=== PATIENT | female | born 1975 | race Caucasian/White ===

== ENCOUNTER 2020-09-19 05:07 | Emergency (ER) | payer OTHER ==
[2020-09-19] MEDS ORDERED: Proparacaine 0.5% Ophth Soln 15 ML Bottle EYEBOTH STA (05:59)
[2020-09-19] MEDS ORDERED: Proparacaine 0.5% Ophth Soln 15 ML Bottle ONE (06:00)
--- NOTE | 2020-09-19 06:14 | EDM.PDOC ---
ED HPI GENERAL MEDICAL PROBLEM - General Chief Complaint: ENT Problem Stated Complaint: RIGHT EYE BOTHERING HER Time Seen by Provider: 09/19/20 05:56 Source of Information: Reports: Patient, Family, RN Notes Reviewed History Limitations: Reports: No Limitations - History of Present Illness INITIAL COMMENTS - FREE TEXT/NARRATIVE: 45-year-old female presents emergency department day complaint of right eye irritation, she states it started yesterday now she has had increasing pain and eyelid edema over the last 12 hours. She has no trouble with her vision right eye Pain Score (Numeric/FACES): 6 - Related Data Allergies Allergy/AdvReac Type Severity Reaction Status Date / Time amoxicillin Allergy Rash Verified 09/19/20 05:30 azithromycin Allergy Stomach Verified 09/19/20 05:30 Ache Penicillins Allergy Rash Verified 09/19/20 05:30 Home Meds: Home Meds NK [No Known Home Meds] 09/19/20 [History] Past Medical History HEENT History: Reports: Impaired Vision, Other (See Below) Other HEENT History: glasses [employer] History: Reports: Oncologic (Cancer) History: Reports: Basal Cell Carcinoma - Infectious Disease History Infectious Disease History: Reports: Chicken Pox - Past Surgical History Female Surgical History: Reports: Endometrial Ablation Musculoskeletal Surgical History: Reports: Other (See Below) Other Musculoskeletal Surgeries/Procedures:: bone spur removal left foot Social & Family History - Tobacco Use Tobacco Use Status *Q: Never Tobacco User - Caffeine Use Caffeine Use: Reports: Coffee - Recreational Drug Use Recreational Drug Use: Yes Drug Use in Last 12 Months: No ED ROS GENERAL - Review of Systems Review Of Systems: See Below Constitutional: Reports: No Symptoms HEENT: Reports: Eye Discharge, Eye Pain. Denies: Vision Change ED EXAM GENERAL W FULL EYE - Physical Exam Exam: See Below Exam Limited By: No Limitations General Appearance: Alert, WD/WN, No Apparent Distress Eye Exam: Bilateral Eye: EOMI, Normal Inspection, PERRL Eyelids: Right: Edema, Left: Normal Appearance Conjunctiva & Sclera: Right: Conjunctival Edema, Discharge, Injected Cornea Exam: Right: Normal Appearance, Examined with Flourescein Extraocular Movements: Bilateral: Intact Pupils: Normal Accommodation Pupillary Size: Bilateral: 5 mm Pupillary Reaction: Bilateral: Brisk Course - Vital Signs Last Recorded V/S: Last Vital Signs Temp 97.9 F 09/19/20 05:32 Pulse 84 09/19/20 05:32 Resp 14 09/19/20 05:32 BP 123/86 09/19/20 05:32 Pulse Ox 97 09/19/20 05:32 - Orders/Labs/Meds Meds: Medications Discontinued Medications Generic Name Dose Route Start Last Admin Trade Name Ritu PRN Reason Stop Dose Admin Proparacaine HCl 1 ml 09/19/20 05:59 Proparacaine 0.5% Ophth Soln 15 Ml Bottle EYEBOTH 09/19/20 06:00 NOW STA Proparacaine HCl Confirm 09/19/20 06:00 Proparacaine 0.5% Ophth Soln 15 Ml Bottle Administered 09/19/20 06:01 Dose 15 ml .ROUTE .STK-MED ONE Departure - Departure Time of Disposition: 06:11 Disposition: Home, Self-Care 01 Condition: Fair Clinical Impression: Edema of right eyelid - Discharge Information Referrals: PCP,None [Primary Care Provider] - Additional Instructions: Start the gentamicin ophthalmic eyedrops and and follow-up with eye care provider today or tomorrow Sepsis Event Note (ED) - Evaluation Sepsis Screening Result: No Definite Risk - Focused Exam Vital Signs: Vital Signs Temp Pulse Resp BP Pulse Ox 09/19/20 05:32 97.9 F 84 14 123/86 97 09/19/20 05:30 97.9 F 84 14 123/86 97 - Assessment/Plan Plan: Assessment Acuity = acute Site and laterality = eyelid edema Etiology = unknown Manifestations = none Location of injury = Home Lab values = none Plan Elected to treat empirically gentamicin ophthalmic drops and then follow-up with eye care provider today This note was dictated using [employer] voice recognition software please call with any questions on syntax or grammar.
== END 2020-09-19 06:39 | disposition home or self-care (01) ==
LOC: JP.ED 05:07
DX: H02.843 Edema of right eye, unspecified eyelid (principal); H11.421 Conjunctival edema, right eye; Z88.0 Allergy status to penicillin; Z88.1 Allergy status to other antibiotic agents
CPT/HCPCS: 99283; A9270